=== PATIENT | female | born 1980 | race Caucasian/White ===

== ENCOUNTER 2021-02-28 11:04 | Emergency (ER) | payer OTHER ==
[~2021-02-28] VITALS: Ht 170.2 cm; Wt 70.0 kg
--- OUTSIDE RECORDS SUMMARY | 2021-02-28 11:06 | XMS ---
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 Diana has no Care Guidelines for this patient. [facility] V[facility] COUNT (12 MO.) [facility] [place] [facility] T[facility] NOTE: Visits indicate total known visits. ED/[facility] VISIT TRACKING (12 MO.) [facility] 11[facility] [place] [facility] COMPLAINT: - FLU SYMPTOMS 02/28/2021 10:24 [facility] Britt OR TYPE: Emergency COMPLAINT: - FLU SYMPTOMS INPATIENT VISIT TRACKING (12 MO.) No inpatient visits to display in this time frame [email or web address]
[2021-02-28] MEDS ORDERED: IBUPROFEN200 M1 PO (11:22)
[2021-02-28] MEDS ORDERED: CHLORASEPTIC177 M1 MM (11:24)
== END 2021-02-28 12:50 | disposition home or self-care (01) ==
LOC: ED 11:04
DX: J06.9 Acute upper respiratory infection, unspecified (principal); Z20.822 Contact with and (suspected) exposure to COVID-19; Z88.0 Allergy status to penicillin
CPT/HCPCS: 99283; U0003